=== PATIENT | female | born 1985 | race American Indian/Alaskan Native ===

== ENCOUNTER 2021-02-03 13:34 | Emergency (ER) | payer BC, OTHER ==
[2021-02-03] MEDS ORDERED: Acetaminophen/oxyCODONE 325-5 MG Tab PO ONE (14:33)
[2021-02-03] MEDS ORDERED: LORazepam 1 MG Tab PO ONE (14:33)
[2021-02-03] MEDS ORDERED: Lidocaine 1% 10 ML MDV INJECT ONE (14:35)
[2021-02-03] MEDS ORDERED: Doxycycline 100 MG Cap PO ONE (15:18)
[2021-02-03] MEDS ORDERED: Sulfamethoxazole/Trimethoprim 800-160 MG Tab PO ONE (15:19)
--- NOTE | 2021-02-03 15:39 | EDM.PDOC ---
ED HPI GENERAL MEDICAL PROBLEM - General Chief Complaint: Neck Problem Stated Complaint: L SHOULDER SKIN COMPLAINT Time Seen by Provider: 02/03/21 14:09 Source of Information: Reports: Patient, RN Notes Reviewed - History of Present Illness INITIAL COMMENTS - FREE TEXT/NARRATIVE: 35 yr old female comes in with multiple abscess upper back and base of neck. She has had difficulty with these off and on for many yrs. Now having a lot of pain, 1 or 2 have started draining a bit. Has a swollen gland along the L side of her neck. No fever or chills. Is not known to be diabetic. Left Shoulder Pain Score (Numeric/FACES): 7 - Related Data Allergies Allergy/AdvReac Type Severity Reaction Status Date / Time No Known Allergies Allergy Verified 02/03/21 13:52 Home Meds: Home Meds Acetaminophen/HYDROcodone [Lincoln 325-5 MG] 1 tab PO Q6H PRN #10 tablet 02/03/21 [Rx] Doxycycline [Vibra-Tabs] 200 mg PO Q12HR #40 tab 02/03/21 [Rx] Sulfamethoxazole/Trimethoprim [Bactrim Ds Tablet] 2 each PO BID #30 tablet 02/03/21 [Rx] Past Medical History HEENT History: Reports: Other (See Below) Other HEENT History: glasses Genitourinary History: Reports: UTI, Recurrent [employer]IST History: Reports: Other (See Below) Other [employer] SPECIALIST History: ZUNILDA Endocrine/Metabolic History: Reports: Other (See Below) Other Endocrine/Metabolic History: borderline Social & Family History - Tobacco Use Tobacco Use Status *Q: Never Tobacco User Second Hand Smoke Exposure: No - Caffeine Use Caffeine Use: Reports: Coffee, Soda - Recreational Drug Use Recreational Drug Use: No Review of Systems - Review of Systems Review Of Systems: See Below Constitutional: Denies: Chills, Fever Nose: Reports: No Symptoms Mouth/Throat: Reports: No Symptoms Respiratory: Denies: Shortness of Breath Cardiovascular: Denies: Chest Pain GI/Abdominal: Denies: Abdominal Pain, Nausea, Vomiting Musculoskeletal: Reports: No Symptoms Skin: Reports: Erythema, Other (multiple inflamed/draining lesions back of neck and upper back) ED EXAM, GENERAL - Physical Exam Exam: See Below General Appearance: Alert, No Apparent Distress Head: Atraumatic Neck: Supple, Lymphadenopathy (L) (Mild L lateral neck, no warm or inflamed) Respiratory/Chest: No Respiratory Distress, Lungs Clear, Normal Breath Sounds Cardiovascular: Regular Rate, Rhythm Skin Exam: Warm, Dry, Other (4 raised lesions across base of neck/upper back junction, the 2 center ones are slightly draining, they all have some fluctuance, the left and R lesions show evidence of scar tissue, possible lateral extension, skin otherwise clear) ED TRAUMA EXTREMITY PROCEDURES - I&D Site: posterior base of neck Skin Prep: Saline Local Anesthesia: Lidocaine: 1% Plain Area Incised With: 11 Blade Drainage: Clear, Small Amount Course - Vital Signs Last Recorded V/S: Last Vital Signs Temp 97.0 F 02/03/21 13:51 Pulse 83 02/03/21 13:51 Resp 20 02/03/21 13:51 BP 169/92 H 02/03/21 13:51 Pulse Ox 100 02/03/21 13:51 - Orders/Labs/Meds Meds: Medications Discontinued Medications Generic Name Dose Route Start Last Admin Trade Name Freq PRN Reason Stop Dose Admin Doxycycline Hyclate 200 mg 02/03/21 15:18 02/03/21 15:31 Doxycycline 100 Mg Cap PO 02/03/21 15:19 200 mg ONETIME ONE Administration Lidocaine HCl 10 ml 02/03/21 14:35 02/03/21 14:43 Lidocaine 1% 10 Ml Mdv INJECT 02/03/21 14:36 10 ml ONETIME ONE Administration Lorazepam 1 mg 02/03/21 14:33 02/03/21 14:42 Lorazepam 1 Mg Tab PO 02/03/21 14:34 1 mg ONETIME ONE Administration Oxycodone/Acetaminophen 1 tab 02/03/21 14:33 02/03/21 14:42 Acetaminophen/Oxycodone 325-5 Mg Tab PO 02/03/21 14:34 1 tab ONETIME ONE Administration Trimethoprim/Sulfamethoxazole 2 tab 02/03/21 15:19 02/03/21 15:31 Sulfamethoxazole/Trimethoprim 800-160 Mg Tab PO 02/03/21 15:20 2 tab ONETIME ONE Administration Departure - Departure Time of Disposition: 15:34 Disposition: Home, Self-Care 01 Clinical Impression: Abscess Cellulitis Qualifiers: Site of cellulitis: neck Qualified Code(s): L03.221 - Cellulitis of neck - Discharge Information Prescriptions: Sulfamethoxazole/Trimethoprim [Bactrim Ds Tablet] 2 each PO BID #30 tablet Acetaminophen/HYDROcodone [Lincoln 325-5 MG] 1 tab PO Q6H PRN #10 tablet PRN Reason: Pain Doxycycline [Vibra-Tabs] 200 mg PO Q12HR #40 tab Referrals: PCP,None [Primary Care Provider] - Forms: ED Department Discharge Additional Instructions: Doxycycline 200 mg twice daily for 10 days or until gone, Bactrim DS, 2 tabs twice daily for 1 week or until gone. Tylenol alternating with ibuprofen for pain or hydrocodone if needed for severe pain. Prescriptions have been sent to [facility] the [place]. Warm compresses several times daily. Call or see provider at [facility] for referral to General Surgeon at [facility] or [facility] this next week or next available appointment. Sepsis Event Note (ED) - Evaluation Sepsis Screening Result: No Definite Risk - Focused Exam Vital Signs: Vital Signs Temp Pulse Resp BP Pulse Ox 02/03/21 13:51 97.0 F 83 20 169/92 H 100
== END 2021-02-03 17:00 | disposition home or self-care (01) ==
LOC: JD.ED 13:34
DX: L03.221 Cellulitis of neck (principal); L02.11 Cutaneous abscess of neck
CPT/HCPCS: 10060; 99282; A9270; 99283

== ENCOUNTER 2022-01-06 13:46 | Emergency (ER) | payer BC ==
[2022-01-06] MEDS ORDERED: Ketorolac 60 MG/2 ML SDV IM ONE (14:07)
== END 2022-01-06 15:30 | disposition home or self-care (01) ==
LOC: JD.ED 13:46
DX: M54.50 Low back pain, unspecified (principal)
CPT/HCPCS: 72100; 96372; 99283; J1885